=== PATIENT | female | born 1980 | race Two or more races ===

== ENCOUNTER 2022-06-02 15:47 | Emergency (ER) | payer SELFPAY ==
[~2022-06-02] VITALS: Ht 152.4 cm; Wt 70.8 kg
[2022-06-02] MEDS ORDERED: CEFTRIAXONE 500 MG VIAL IM ONE (20:45)
[2022-06-02] MEDS ORDERED: OXYCODONE/APAP 5-325 MG TABLET PO ONE (20:45)
[2022-06-02] MEDS ORDERED: DOXYCYCLINE HYCLATE 100 MG TABLET PO ONE (20:45)
[2022-06-02] MEDS ORDERED: METRONIDAZOLE 500 MG TABLET PO ONE (20:45)
[2022-06-02] MEDS ORDERED: CEFTRIAXONE 500 MG VIAL ONE (21:04)
[2022-06-02] MEDS ORDERED: DOXYCYCLINE HYCLATE 100 MG TABLET ONE (21:04)
[2022-06-02] MEDS ORDERED: METRONIDAZOLE 500 MG TABLET ONE (21:05)
[2022-06-02] MEDS ORDERED: OXYCODONE/APAP 5-325 MG TABLET ONE (21:05)
--- NOTE | 2022-06-02 21:15 | NUR ---
DR. GARCIA AT BEDSIDE AND EXAMINED PATIENT. MEDICATIONS GIVEN ORDERED. IM INJECTION TO RIGHT GLUTEAL.
--- NOTE | 2022-06-02 21:29 | NUR ---
per DR. Dowell cancelled saline lock.
[2022-06-02 21:31] LABS: HEMATOCRIT 41.6 % (31.2-41.9); MEAN CORPUSCULAR HEMOGLOBIN 29.6 uug (24.7-32.8); PLATELET COUNT (AUTO) 190 K/uL (179-408)
[2022-06-02] MEDS ORDERED: OXYC-128 PO (21:56)
[2022-06-02] MEDS ORDERED: DOXY100C5 PO (21:56)
[2022-06-02] MEDS ORDERED: METR500T PO (21:56)
[2022-06-02] MEDS ORDERED: PROC10TA29 PO (21:56)
--- NOTE | 2022-06-02 22:08 | NUR ---
Patient discharged to home in stable condition. Written and verbal after care instructions given. Patient verbalizes understanding of instructions. Stressed follow up or return to ER for worsening s/s.
[2022-06-02 22:09] VITALS: BP 115/70
== END 2022-06-02 22:09 | disposition home or self-care (01) ==
LOC: ER 15:50 → EDBD 15:50 → ER 22:09
DX: N73.9 Female pelvic inflammatory disease, unspecified (principal)
CPT/HCPCS: 99284; 76856; 80048; 85025; 87040; 36415; 96372; J0696; A4663